=== PATIENT | female | born 1965 ===

== ENCOUNTER 2018-06-25 09:45 | Outpatient (CLI) | payer MEDICAID | END 2018-06-25 09:46 | disposition home or self-care (01) | LOC: C.RADIC 09:45 ==

== ENCOUNTER 2018-06-26 10:15 | Outpatient (CLI) | payer MEDICAID | END 2018-06-26 10:16 | disposition home or self-care (01) | LOC: C.RADH 10:15 | DX: M54.40 Lumbago with sciatica, unspecified side (principal) ==